=== PATIENT | female | born 1965 | race Hispanic/Latino ===

== ENCOUNTER → 2016-08-27 | Outpatient (CLI) | payer OTHER ==
[~2016-08-27] MED LIST: GADOBUTROL 7.5 MMOL/7.5 ML (GADAVIST) VIAL IV ONE
--- OUTSIDE RECORDS SUMMARY | 2016-08-27 09:53 | XMS REPORT | Continuity of Care Document ---
Author Author [facility] Organization [facility] Address Unknown Phone Unavailable Allergies Medications Problems Date Dx Coded Attending Type Code Diagnosis Diagnosed By 08/24/2016 MALINDA WISEMAN APRN Ot R10.11 RIGHT UPPER QUADRANT PAIN Procedures Results Encounters ACCT No. Visit Date/Time Discharge Status Pt. Type Provider Facility Loc./Unit Complaint [id number] 06/25/2015 07:30:00 [facility] MALINDA WISEMAN APRN [facility] RAD RUQ PAIN
[2016-08-27 10:35] LABS: ANION GAP 10 MMOL/L (5-14); BLOOD UREA NITROGEN 17 MG/DL (7-18); BUN/CREATININE RATIO 24; CALCIUM 9.5 MG/DL (8.5-10.1); CARBON DIOXIDE 24 MMOL/L (21-32); CHLORIDE 105 MMOL/L (98-107); GFR ESTIMATED > 60; GLUCOSE 134 MG/DL (70-105); POTASSIUM 3.9 MMOL/L (3.6-5.0); SODIUM 139 MMOL/L (135-145)
--- NOTE | 2016-08-27 12:13 | Diagnostic Imaging Report ---
PROCEDURE: MR imaging of the brain with and without contrast. TECHNIQUE: Multiplanar, multisequence MR imaging of the brain was performed with and without contrast. INDICATION: Left hearing loss. There are no prior studies available for comparison. FINDINGS: There is no mass, shift to midline or hemorrhage to suggest an acute intracranial abnormality. There is no abnormal signal arising from the brain on the diffusion series to indicate an area of acute ischemia either. Furthermore, there is no abnormal enhancement on the postcontrast series to indicate a neoplastic or infectious process. In particular, there is no signal abnormality arising from the seventh or eighth nerve complexes to account for the patient's left-sided hearing loss. Ventricles are not abnormally dilated. There are a few very small areas of increased signal in the periventricular white matter bilaterally on the FLAIR series. These findings are nonspecific, but may be secondary to encephalomalacia from microvascular ischemia. The sella is not enlarged and expected carotid flow voids are evident bilaterally. The orbits are symmetrical and within normal limits. The optic chiasm is undisturbed. The infundibulum inserts just to the left of midline. There is a 2.1 x 2.7 cm retention cyst in the left maxillary antrum. The sinuses are otherwise generally clear and well aerated. IMPRESSION: 1. There is no evidence for an acute intracranial abnormality. 2. There is no abnormal enhancement to suggest neoplastic or infectious process. In particular, there is no abnormal enhancement of the seventh or eighth nerve complexes to account for patient's left-sided hearing loss. 3. The small areas of altered signal in the periventricular white matter on the FLAIR series are nonspecific but may be secondary to encephalomalacia from microvascular ischemia. 4. There is a large retention cyst in left maxillary antrum. Dictated by: Dictated on workstation # [id number]
== END ==
LOC: RAD 09:50
PROVIDERS: ATTEND Otolaryngology
DX: H91.8X2 Other specified hearing loss, left ear (principal); G44.52 New daily persistent headache (NDPH); H81.49 Vertigo of central origin, unspecified ear
CPT/HCPCS: 36415; 70553; 80048